=== PATIENT | female | born 1975 | race Caucasian/White ===

== ENCOUNTER 2022-06-03 15:53 | Inpatient (IN) ==
[2022-06-03] MEDS ORDERED: diphenhydrAMINE 50 MG/ML VIAL IV ONE (19:21)
[2022-06-03] MEDS ORDERED: CEFEPIME 1 GM VIAL IV ONE (19:22)
--- NOTE | 2022-06-03 20:04 | Emergency Department Note ---
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 Organism is positive bacilli resembling diphtheroids, isolate is Corynebacterium striatum. Patient also had skin cultures on 05/30/2022 that resulted multi organism, specifically Pseudomonas strep group B and Acinetobacter. Susceptibilities show Pseudomonas and Acinetobacter susceptible to cefepime. The patient was on ciprofloxacin for an extended period of time over April. Her antibiotics were stopped at the end of April, and due to worsening symptoms, she was placed on Keflex on 05/30 and has been on this ever since. Patient notes that her skin lesions have been getting worse with increasing redness, pruritus, and involvement of the affected skin areas. She has notable rash to the bilateral groin and under her pannus. She also has a worsening rash to the right axilla, and along the lower thoracic and lumbar spine bilaterally. Related Data Home Medications Medication Instructions Recorded Confirmed aspirin 81 mg tablet,delayed 81 mg PO QDAY 08/07/19 01/22/22 release (Adult Low Dose Aspirin) duloxetine 20 mg capsule,delayed 20 mg PO BID 08/07/19 01/22/22 release (Cymbalta) fluconazole 100 mg tablet 100 mg PO QWEEK 08/07/19 01/22/22 gabapentin 600 mg tablet 600 mg PO QID 08/07/19 01/22/22 metoprolol PO 08/09/19 01/22/22 acyclovir 800 mg tablet 800 mg PO BID 01/22/22 01/22/22 gentamicin 0.1 % topical cream applic topical QDAY 01/22/22 01/22/22 meloxicam 7.5 mg tablet 7.5 mg PO QDAY 01/22/22 01/22/22 mupirocin calcium 2 % topical cream applic topical PRN 01/22/22 01/22/22 progesterone micronized 200 mg 200 mg PO QPM 01/22/22 01/22/22 capsule Previous Rx's Medication Instructions Recorded albuterol sulfate 90 mcg/actuation 2 puff inhalation .q4-6h PRN 08/07/19 aerosol inhaler (ProAir HFA) cough, shortness of breath, wheezing #8.5 grams benzonatate 100 mg capsule See Rx Instructions PO .q 8 hours 01/22/22 PRN cough #30 caps Allergies Allergy/AdvReac Type Severity Reaction Status Date / Time Warfarin AdvReac Severe vertigo Verified 06/03/22 16:02 Review of Systems ROS ROS Narrative: Narrative: All systems ED: reviewed and negative except as stated. PFSH Narrative Patient History Narrative: Narrative: Medical/Surgical/Family History All Active Problems Bacteremia (Acute) Viral syndrome (Acute) PVCs (premature ventricular contractions) (Acute) History of hysterectomy (Acute) Social History Smoking Status: Never smoker Exam Narrative Narrative: General: AOx3, NAD, nontoxic appearing. Pleasant and conversant. HEENT: PERRL, EOMI, normocephalic. Moist mucous membranes. Normal facies and normal dentition. Chest: Symmetric, no pain to palpation Respiratory: Lungs clear to auscultation bilaterally. No respiratory distress. Unlabored breathing. Heart: Regular rate and rhythm, no murmurs/clicks/rubs. Abdomen: Non-tender, Non distended, normal bowel tones. No organomegaly. Extremities: Warm and well perfused. No edema. DP 2+ bilaterally. No venous stasis. Neuro: No focal deficits. Cranial nerves II-XII grossly normal. Skin: Warm dry, left axilla 10 x 14 cm scaly and erythematous plaque-like rash with clear yellowish drainage. No fluctuance. Right axilla with 5 x 8 cm scaly and erythematous plaque-like rash with clear yellow drainage. Back with a 25 x 22 scaly and erythematous plaque-like rash traversing the midline and wrapping around through the right breast area and across the midline. Psych: Normal mood and affect Heme/Lymph: No abnormal bruising General Limitations: no limitations Course Course Course Narrative: 46-year-old female with history of Darier's disease and positive blood cultures x2 for corynebacterium presents to the ER for evaluation Reevaluation(s) Reevaluation #1: Obtain CBC, chemistry panel, blood cultures Start IV cefepime 1 g to cover Pseudomonas and Acinetobacter 1500 mg IV vancomycin to cover strep/staph and corynebacterium Reevaluation #2: CBC with leukocytosis of 12,500 and no left shift. Chemistry panel is unremarkable with a creatinine of 1.2 Vital Signs Vital signs: Vital Signs Temperature 97.1 F 06/03/22 15:57 Pulse Rate 78 06/03/22 15:57 Respiratory Rate 18 06/03/22 15:57 Blood Pressure 132/65 06/03/22 15:57 Pulse Oximetry (%) 99 06/03/22 15:57 Oxygen Delivery Method Room Air 06/03/22 15:57 Temperature 97.1 F 06/03/22 15:57 Pulse Rate 72 06/03/22 21:47 Respiratory Rate 18 06/03/22 15:57 Blood Pressure 93/75 06/03/22 21:47 Pulse Oximetry (%) 96 06/03/22 21:47 Oxygen Delivery Method Room Air 06/03/22 15:57 MDM MDM Narrative Medical decision making narrative: Darier's disease Corynebacteria bacteremia Patient with multi-organism skin infection and corynebacteria positive blood cultures in the setting of her underlying Darier's disease. She does not meet SIRS criteria; however, the patient will need admission for initiation of IV antibiotics and plan for outpatient treatment. I have reached out to the hospitalist who will be accepting the patient for observation. I attempted to obtain infectious disease consult, but [place]'s ID service is currently not available, and our telehealth infectious disease is also not available. This will have to be deferred until the morning. Lab Data 06/03/22 19:49 Labs: Lab Results 06/03/22 Range/Units 20:55 POC Hct 37.0 (36-48) POC Sodium 141 (133-145) POC Potassium 3.8 (3.3-5.1) POC Chloride 104 (96-108) POC Total CO2 26.0 (22-30) POC BUN 18 (6-20) POC Creatinine 1.2 (0.6-1.2) POC Glucose 78 (70-105) POC WB Ioniz Calcium 1.18 (1.16-1.32) Discharge Plan Patient/Caregiver Discharge Instructions Pt seen by [facility]/PA only: Yes Clinical Impression: Bacteremia Patient Disposition: Xfer As Inpt ([facility]) Follow up with: Aurora Dangelo ARNP [Primary Care Provider] - Prescriptions: No Action meloxicam 7.5 mg tablet 7.5 mg PO QDAY acyclovir 800 mg tablet 800 mg PO BID progesterone micronized 200 mg capsule 200 mg PO QPM gentamicin 0.1 % cream topical QDAY mupirocin calcium 2 % cream topical PRN benzonatate 100 mg capsule See Rx Instructions PO .q 8 hours PRN (Reason: cough) Qty: 30 0RF Rx Instructions: 1-2 PO q 8 hours PRN gabapentin 600 mg tablet 600 mg PO QID duloxetine [Cymbalta] 20 mg capsule,delayed release(DR/EC) 20 mg PO BID aspirin [Adult Low Dose Aspirin] 81 mg tablet,delayed release (DR/EC) 81 mg PO QDAY fluconazole 100 mg tablet 100 mg PO QWEEK albuterol sulfate [ProAir HFA] 90 mcg/actuation HFA aerosol inhaler 2 puff inhalation .q4-6h PRN (Reason: cough, shortness of breath, wheezing) Qty: 8.5 0RF Rx Instructions: administer with spacer metoprolol PO
[2022-06-03] MEDS ORDERED: VANCOMYCIN 1,500 MG in 0.9 % SODIUM CHLORIDE 500 ML IV ONE (20:13)
[2022-06-03 21:01] LABS: POC Calcium, Ionized 1.18 (1.16-1.32); POC Creatinine 1.2 (0.6-1.2); POC Potassium 3.8 (3.3-5.1)
--- NOTE | 2022-06-03 22:02 | Internal Med History&Physical ---
HPI History of Present Illness Patient information: Note initiated : 06/03/22 at 9:54 pm Service Date, if different from initiated Date: [] Patient: Lauren Landin a 46 y/o F admitted on for skin infection sent by Chief Complaint: [] History of present illness: Ms. Landin is a 46 year old F Patient presented from [facility] for bacteremia. Patient has a history of Darier chronic skin condition. She had a flareup since last fall. This is resulted in severe erythematous and tender plaquing most notably bilateral axilla and back and groin and under breasts. She gets serosanguineous drainage from these lesions. Recent culture of these drainage fluid revealed Pseudomonas and Acetobacter. Her blood cultures that were drawn on the revealed Corynebacterium stratum. Patient says she has had fevers chills and headache. Systolic blood pressure in the ED has been 90s to low 100s. Patient is also been on topical steroids at times is with topical antibiotics. She was on ciprofloxacin in April for extended period of time. She has most recently been on Keflex since the . She has not had any significant improvement in her flare thus far. She does follow with dermatology at [facility], nurse practitioner. Review of Systems: Pertinent positives as above. Denies nausea/vomiting/chest or abdominal pain/cough/dyspnea/diarrhea. Remaining 10 point review of system reviewed negative PHYSICAL EXAM: General: Alert, Awake, No acute Distress, obese Eyes/N/T: EOMI, no scleral icterus, PERRL, MMM Head/Neck: neck supple, full ROM, normocephalic atraumatic CV: RRR, No murmurs, normal s1/s2 Pulm: Clear b/l, no wheezing/rhonchi/rales, no respiratory distress Abd: soft, nontender, +BS x4 Ext: no clubbing/cyanosis/edema, nontender Neuro: Alert, no focal deficits, moves all extremities, CN 2-12 grossly intact, sensations intact b/l upper/lower Psychiatric: Skin: Erythematous and tender plaques bilateral axilla and lower back with serosanguineous drainage PFSH PFSH All Active Problems Bacteremia (Acute) Viral syndrome (Acute) PVCs (premature ventricular contractions) (Acute) History of hysterectomy (Acute) Social History (Updated 08/09/19 @ 09:49 by Marley Quesada DO) smoking status: Never smoker MEDS/ALLERGIES Home Medications and Allergies Home Medications Medication Instructions Recorded Confirmed Type albuterol sulfate 90 mcg/actuation 2 puff inhalation .q4-6h PRN 08/07/19 01/22/22 Rx aerosol inhaler (ProAir HFA) cough, shortness of breath, wheezing #8.5 grams aspirin 81 mg tablet,delayed 81 mg PO QDAY 08/07/19 01/22/22 History release (Adult Low Dose Aspirin) duloxetine 20 mg capsule,delayed 20 mg PO BID 08/07/19 01/22/22 History release (Cymbalta) fluconazole 100 mg tablet 100 mg PO QWEEK 08/07/19 01/22/22 History gabapentin 600 mg tablet 600 mg PO QID 08/07/19 01/22/22 History metoprolol PO 08/09/19 01/22/22 History acyclovir 800 mg tablet 800 mg PO BID 01/22/22 01/22/22 History benzonatate 100 mg capsule See Rx Instructions PO .q 8 hours 01/22/22 01/22/22 Rx PRN cough #30 caps gentamicin 0.1 % topical cream applic topical QDAY 01/22/22 01/22/22 History meloxicam 7.5 mg tablet 7.5 mg PO QDAY 01/22/22 01/22/22 History mupirocin calcium 2 % topical cream applic topical PRN 01/22/22 01/22/22 History progesterone micronized 200 mg 200 mg PO QPM 01/22/22 01/22/22 History capsule Allergies Allergy/AdvReac Type Severity Reaction Status Date / Time Warfarin AdvReac Severe vertigo Verified 06/03/22 16:02 EXAM Constitutional Vitals: Temp Pulse Resp BP Pulse Ox O2 Del Method 97.1 F 72 18 93/75 96 Room Air 06/03/22 15:57 06/03/22 21:47 06/03/22 15:57 06/03/22 21:47 06/03/22 21:47 06/03/22 15:57 DATA Data Completed and Pending Labs: Labs from last 24 hours 06/03/22 06/03/22 20:55 19:49 WBC Pending RBC Pending Hgb Pending Hct Pending POC Hct 37.0 MCV Pending MCH Pending MCHC Pending RDW Pending Plt Count Pending MPV Pending Immature Gran % (Auto) Pending Neut % (Auto) Pending Immature Gran # Pending POC Sodium 141 POC Potassium 3.8 POC Chloride 104 POC Total CO2 26.0 POC BUN 18 POC Creatinine 1.2 POC Glucose 78 POC WB Ioniz Calcium 1.18 A/P Narrative A/P Narrative: A: *Bacteremia (Corynebacterium stratum): *Teresa sim chronic skin condition with flare, drainage, Cxs' with Pseumonas/Acinetobacter -Follows with dermatology and is on chronic acyclovir/fluconazole *Obesity: BMI 38 *HTN/HLD: *Anxiety: *Anemia, chronic: *GERD: * P: -Zosyn/Vanco, pending cultures -ID consult -Repeat blood cultures pending -mrsa screen - -cont home BB/SNRI, asa/statin - -Home medication reconciliation -CM for placement needs to -ppx:Lovenox /home PPI Time Spent With Patient Time: Total time spent is greater than 50% in coordination of care (as documented) at patient's floor/unit and/or counseling patient: Initial: Total time with patient: 75 - 90 minutes
[2022-06-04] MEDS ORDERED: VANCOMYCIN PER PHARMACY IV ONE (01:45)
[2022-06-04] MEDS ORDERED: MAGNESIUM SULFATE 2 GM/50 ML BAG IV PRN (01:45)
[2022-06-04] MEDS ORDERED: SENNOSIDES 1 TABLET PO PRN (01:45)
[2022-06-04] MEDS ORDERED: POLYETHYLENE GLYCOL 3350 17 GM PACKET PO PRN (01:45)
[2022-06-04] MEDS ORDERED: POTASSIUM CHLORIDE 40 MEQ in DEXTROSE 5% IN WATER 500 ML IV PRN (01:45)
[2022-06-04] MEDS ORDERED: ONDANSETRON 4 MG/2 ML VIAL IV PRN (01:45)
[2022-06-04] MEDS ORDERED: POTASSIUM CHLORIDE 20 MEQ TABLET PO PRN ×2 (01:45)
[2022-06-04] MEDS ORDERED: IPRATROPIUM/ALBUTEROL 3 ML AMPUL.NEB NEB PRN (01:45)
[2022-06-04] MEDS: 0.9 % SODIUM CHLORIDE 1,000 ML IV SCH ×4 (02:31→17:59)
[2022-06-04] MEDS: PIPERACILLIN SODIUM/TAZOBACTAM 3.375 GM in DEXTROSE 5% IN WATER 50 ML IV SCH ×4 (02:32→17:50)
[2022-06-04 03:20] LABS: Basophils # (Auto) 0.12 K/mcL (0.00-0.30); Eosinophils # (Auto) 1.08 K/mcL (0.00-0.70); Eosinophils % (Auto) 8.6 % (0.0-7.0); Hematocrit 39.7 % (34.1-44.9); Hemoglobin 12.3 g/dL (11.2-15.7); Lymphocytes # (Auto) 3.22 K/mcL (1.50-4.80); Lymphocytes % (Auto) 25.7 % (15.5-49.0); Mean Cell Volume 88.6 fL (80.0-100.0); Mean Platelet Volume 9.4 fL (8.8-12.5); Monocytes # (Auto) 0.81 K/mcL (0.10-0.90); Monocytes % (Auto) 6.5 % (1.0-12.0); Platelet Count 414 K/mcL (140-440); RBC 4.48 M/mcL (3.59-5.38); Red Cell Distribution Width 14.5 % (11.5-14.5); WBC 12.6 K/mcL (4.5-11.0)
[2022-06-04] MEDS: HYDROcodone/APAP 5/325MG TABLET PO ONE ×2 (03:52→04:18)
[2022-06-04] MEDS: HYDROcodone/APAP 5/325MG TABLET PO PRN ×2 (03:53→09:28)
[2022-06-04] MEDS ORDERED: diphenhydrAMINE 25 MG CAPSULE ONE (04:08)
[2022-06-04] MEDS: diphenhydrAMINE 25 MG CAPSULE PO PRN ×2 (04:09→09:28)
[2022-06-04] MEDS: 0.9 % SODIUM CHLORIDE 10 ML SYRINGE IV SCH ×3 (05:49→21:03)
[2022-06-04] MEDS ORDERED: VANCOMYCIN PER PHARMACY IV SCH (06:45)
[2022-06-04 07:19] LABS: Basophils # (Auto) 0.09 K/mcL (0.00-0.30); Basophils % (Auto) 0.8 % (0.0-2.0); Eosinophils # (Auto) 1.04 K/mcL (0.00-0.70); Eosinophils % (Auto) 9.1 % (0.0-7.0); Hematocrit 36.8 % (34.1-44.9); Hemoglobin 11.2 g/dL (11.2-15.7); Lymphocytes # (Auto) 2.94 K/mcL (1.50-4.80); Lymphocytes % (Auto) 25.9 % (15.5-49.0); Mean Cell Volume 88.2 fL (80.0-100.0); Mean Corpuscular HGB Conc 30.4 g/dL (31.0-36.0); Mean Platelet Volume 9.3 fL (8.8-12.5); Monocytes # (Auto) 0.76 K/mcL (0.10-0.90); Monocytes % (Auto) 6.7 % (1.0-12.0); Neutrophils % (Auto) 57.2 % (38.0-78.0); Platelet Count 345 K/mcL (140-440); RBC 4.17 M/mcL (3.59-5.38); Red Cell Distribution Width 14.4 % (11.5-14.5); WBC 11.4 K/mcL (4.5-11.0)
[2022-06-04] MEDS ORDERED: MELOXICAM 7.5 MG TABLET PO PRN (07:33)
[2022-06-04] MEDS ORDERED: BENZONATATE 100 MG CAPSULE PO PRN (07:33)
--- NOTE | 2022-06-04 07:35 | Internal Med Progress Note ---
SUBJECTIVE Subjective Patient information: Note initiated : 06/04/22 at 7:31 am Service Date, if different from initiated Date: [] Patient: Lauren Landin a 46 y/o F admitted on 06/03/22 for skin infection sent by Chief Complaint: [] Interval history: History of present illness: Ms. Landin is a 46 year old F Patient presented from [facility] for bacteremia. Patient has a history of Darier chronic skin condition. She had a flareup since last fall. This is resulted in severe erythematous and tender plaquing most notably bilateral axilla and back and groin and under breasts. She gets serosanguineous drainage from these lesions. Recent culture of these drainage fluid revealed Pseudomonas and Acetobacter. Her blood cultures that were drawn on the revealed Corynebacterium stratum. Patient says she has had fevers chills and headache. Systolic blood pressure in the ED has been 90s to low 100s. Patient is also been on topical steroids at times is with topical antibiotics. She was on ciprofloxacin in April for extended period of time. She has most recently been on Keflex since the . She has not had any significant improvement in her flare thus far. She does follow with dermatology at [facility], nurse practitioner. 06/04 Patient slept all right. Awaiting culture report and ID consult recommen dations. Continue broad-spectrum IV antibiotics until seen by infectious disease specialist. Monitor CBC and chemistry panel. Leukocytosis mildly improved faxed report of sensitivities to Pseudomonas revealed resistance to ciprofloxacin and gentamicin, sensitive to aztreonam cefepime and Zosyn. Fax report of sensitivities to Acinetobacter show sensitivity to all antibiotics tested. report from 05/31/2022 reveals Corynebacterium striatum group in both bottles of one set, blood cultures. Looks like other set negative. Review of Systems: Positive for headache. Denies fever/chills/nausea/vomiting/chest or abdominal pain/cough/dyspnea/diarrhea. Otherwise see above. PHYSICAL EXAM: General: Alert, Awake, No acute Distress, obese Eyes/N/T: EOMI, no scleral icterus, Head/Neck: neck supple, full ROM, CV: RRR, No murmurs, Pulm: Clear b/l, no wheezing/rhonchi/rales, no respiratory distress Abd: soft, nontender, +BS x4 Ext: no clubbing/cyanosis/edema, nontender Neuro: Alert, no focal deficits, moves all extremities, sensations intact b/l upper/lower Psychiatric: Skin: Erythematous and tender plaques bilateral axilla and lower back with serosanguineous drainage Constitutional Vitals: Vital Signs Temp Pulse Resp BP Pulse Ox O2 Del Method 97.8 F 55 L 16 121/69 97 Room Air 06/04/22 04:00 06/04/22 04:00 06/04/22 04:00 06/04/22 04:00 06/04/22 04:00 06/04/22 04:00 Period Temp Pulse Resp BP Sys/Parker Pulse Ox O2 Del Method O2 Flow Rate Last 24 Hr 97.1 F-98.9 F 55-78 12-18 73-132/46-75 95-99 Room Air-Room Air Intake and Output 06/03/22 06/04/22 06/04/22 19:59 03:59 11:59 Intake Total 550 360 Balance 550 360 Weight 95.254 kg 94.829 kg Intake & Output: Intake & Output 06/03/22 06/04/22 06/04/22 19:59 03:59 11:59 Intake Total 550 360 Balance 550 360 Weight 95.254 kg 94.829 kg Intake: IV 550 Zosyn 3.375 gm In Dextrose 5% 50 in Water 50 ml @ 100 mls/hr IV Q6H [facility] Rx#:[id number] Vancomycin 1,500 mg In Sodium 500 Chloride 0.9% 500 ml @ 333.3 mls/hr IV ONCE ONE Rx#: [id number] Oral 360 Other: # Voids 1 OBJ DATA Labs 06/04/22 05:04 06/04/22 05:04 Labs: Abnormal Lab Results 06/04/22 06/03/22 05:04 19:49 WBC 11.4 H 12.6 H MCHC 30.4 L Eos % (Auto) 9.1 H 8.6 H Eos # (Auto) 1.04 H 1.08 H Meds: Medications Hydrocodone Bitart/Acetaminophen (Hydrocodone/Apap 5/325mg Tablet) 1 tab PO Q4HP PRN PRN Reason: PAIN LEVEL 3-6 Last Admin: 06/04/22 03:53 Dose: 1 tab Albuterol/Ipratropium (Ipratropium/Albuterol 3 Ml Ampul.Neb) 3 ml NEB Q4HP PRN PRN Reason: Shortness Of Breath Diphenhydramine HCl (Diphenhydramine 25 Mg Capsule) 25 mg PO Q4HP PRN PRN Reason: Allergic Symptoms Last Admin: 06/04/22 04:09 Dose: 25 mg Docusate Sodium (Docusate Sodium 100 Mg Capsule) 100 mg PO BID [facility] Enoxaparin Sodium (Enoxaparin 40 Mg/0.4 Ml Syringe) 40 mg SQ DAILY [facility] Potassium Chloride 40 meq/ (Dextrose) 520 mls @ 130 mls/hr IV UD PRN PRN Reason: Potassium < 3 Magnesium Sulfate (Magnesium Sulfate) 2 gm in 50 mls @ 50 mls/hr IV UD PRN PRN Reason: Magnesium </= 1.6 Sodium Chloride (Sodium Chloride 0.9%) 1,000 mls @ 125 mls/hr IV .Q8H [facility] Last Admin: 06/04/22 02:31 Dose: 125 mls/hr Piperacillin Sod/Tazobactam (Sod 3.375 gm/ Dextrose) 50 mls @ 100 mls/hr IV Q6H [facility]; Protocol Last Admin: 06/04/22 06:58 Dose: 100 mls/hr Ondansetron HCl (Ondansetron 4 Mg/2 Ml Vial) 4 mg IV Q4HP PRN PRN Reason: Nausea And Vomiting Polyethylene Glycol (Polyethylene Glycol 3350 17 Gm Packet) 17 gm PO DAILYP PRN PRN Reason: Constipation Potassium Chloride (Potassium Chloride 20 Meq Tablet) 40 meq PO UD PRN PRN Reason: Potssium is 3-3.5 Potassium Chloride (Potassium Chloride 20 Meq Tablet) 40 meq PO UD PRN PRN Reason: Potassium < 3 Senna (Sennosides 1 Tablet) 2 tab PO DAILYP PRN PRN Reason: Constipation Sodium Chloride (0.9 % Sodium Chloride 10 Ml Syringe) 10 ml IV Q8 [facility] Last Admin: 06/04/22 05:49 Dose: Not Given Vancomycin HCl (Vancomycin Per Pharmacy) 1 order IV UD [facility]; Protocol A/P Narrative A/P Narrative: A: *Bacteremia (Corynebacterium stratum): *Leukocytosis: 2/2 above, improving *Teresa sim chronic skin condition with flare, drainage, Cxs' with Pseudomonas/Acinetobacter -Follows with dermatology and is on chronic acyclovir/fluconazole, was on topical gentamicin at one point *Obesity: BMI 38 *HTN/HLD: *Anxiety: *Anemia, chronic: *GERD: P: -Zosyn/Vanco, pending cultures -ID consult -Repeat blood cultures pending -mrsa screen -cont home BB/SNRI, asa/statin - -CM for any placement needs -ppx:Lovenox / home PPI Time Spent With Patient Time: Total time spent is greater than 50% in coordination of care (as documented) at patient's floor/unit and/or counseling patient: Subsequent: Total time with patient: 50 - 65 Minutes QUALITY VTE Deep Vein Thrombosis/Pulmonary Embolism Present on Admission: No
[2022-06-04 08:03] LABS: ALT/SGPT 8 U/L (<40); AST/SGOT 14 U/L (<32); Albumin 3.6 gm/dL (3.2-5.2); Albumin/Globulin Ratio 1.7 (1.0-2.3); Alkaline Phosphatase 60 U/L (39-117); Bilirubin,Direct < 0.2 mg/dL (0-0.3); Bilirubin,Total 0.4 mg/dL (0.1-1.0); Blood Urea Nitrogen 15 mg/dL (6-20); Calcium 8.6 mg/dL (8.6-10.4); Carbon Dioxide 23 mmol/L (22-30); Chloride 103 mmol/L (96-108); Globulin 2.1 gm/dL (2.2-3.7); Glomerular Filtration Rate 76; Glucose 84 mg/dL (70-105); Lactate Dehydrogenase 220 U/L (135-225); Triglycerides 85 mg/dL (<150); Uric Acid 5.1 mg/dL (2.5-8.0)
[2022-06-04] MEDS ORDERED: FLUCONAZOLE 100 MG TABLET PO SCH (09:00)
[2022-06-04] MEDS: GABAPENTIN 300 MG CAPSULE PO SCH ×4 (09:15→20:49)
[2022-06-04] MEDS: ENOXAPARIN 40 MG/0.4 ML SYRINGE SQ SCH (09:15)
[2022-06-04] MEDS: VANCOMYCIN 1,500 MG in 0.9 % SODIUM CHLORIDE 500 ML IV SCH ×2 (09:16→21:03)
[2022-06-04] MEDS: ACYCLOVIR 400 MG TABLET PO SCH ×2 (09:16→20:49)
[2022-06-04] MEDS: DOCUSATE SODIUM 100 MG CAPSULE PO SCH ×2 (09:16→20:48)
[2022-06-04] MEDS: ASPIRIN 81 MG TAB.CHEW PO SCH (09:16)
[2022-06-04] MEDS: DULoxetine 20 MG CAPSULE PO SCH ×2 (09:16→20:49)
--- NOTE | 2022-06-04 15:17 | Discharge Summary ---
Discharge Provider Provider IMPORTANT FOLLOW-UP INFORMATION FOR PCP: Patient information: Note initiated : 06/04/22 at 3:15 pm Service Date, if different from initiated Date: [] Patient: Lauren Landin a 46 y/o F admitted on 06/03/22 for skin infection sent by Chief Complaint: [] Date of admission: 06/03/22 23:16 Discharge date: 06/07/22 Primary care physician: Aurora Dangelo Consults: 06/03/22 Consult to Physician [CONS] Stat Comment: bacteremia Consulting Provider: Dylan Casanova Reason For Exam: Physician to Consult 06/04/22 01:45 Consult to Physician [CONS] Routine Comment: Corynebacterium Bacteremia, pseudomonas/acinetobac Consulting Provider: Leticia Villasenor Reason For Exam: Physician to Consult COURSE Hospital Course Hospital course: istory of present illness: Ms. Landin is a 46 year old F Patient presented from [facility] for bacteremia. Patient has a history of Darier chronic skin condition. She had a flareup since last fall. This is resulted in severe erythematous and tender plaquing most notably bilateral axilla and back and groin and under breasts. She gets serosanguineous drainage from these lesions. Recent culture of these drainage fluid revealed Pseudomonas and Acetobacter. Her blood cultures that were drawn on the revealed Corynebacterium stratum. Patient says she has had fevers chills and headache. Systolic blood pressure in the ED has been 90s to low 100s. Patient is also been on topical steroids at times is with topical antibiotics. She was on ciprofloxacin in April for extended period of time. She has most recently been on Keflex since the . She has not had any significant improvement in her flare thus far. She does follow with dermatology at [facility], nurse practitioner. 06/04 Patient slept all right. Awaiting culture report and ID consult recommendations. Continue broad-spectrum IV antibiotics until seen by infectious disease specialist. Monitor CBC and chemistry panel. Leukocytosis mildly improved faxed report of sensitivities to Pseudomonas revealed resistance to ciprofloxacin and gentamicin, sensitive to aztreonam cefepime and Zosyn. Fax report of sensitivities to Acinetobacter show sensitivity to all antibiotics tested. report from 05/31/2022 reveals Corynebacterium striatum group in both bottles of one set, blood cultures. Looks like other set negative. 06/05 Patient tired today. Developed diarrhea yesterday. Will DC stool softeners. Check fecal WBCs. Awaiting ID consult. Leukocytosis resolved. 06/06 Diarrhea seems to resolved. started augemtin and aztreonam per ID. awaiting midline placement and output infusion coordination. 06/07 No overnight event or new complaints. Have been coordinating outpatient infusions and midline placement. A: *Wound infections: 2/2 below -Cxs' withPseudomonas/Acinetobacter *Corynebacterium stratum in blood - suspected contaminant): -repeat BC neg *Teresa sim chronic skin condition with flare, drainage from multiple areas, -Follows with dermatology and is on chronic acyclovir/fluconazole, was on topical gentamicin at one point *Leukocytosis: 2/2 above, improving *Obesity: BMI 38 *HTN/HLD: *Anxiety: *Anemia, chronic: *GERD: P: -cont aztreonam 2gm tid and augmentin bid for 1 week Discharge diagnosis: Skin infection ?Bacteremia versus contaminant Secondary discharge diagnosis: Teresa roney, obesity hypertension anxiety chronic anemia GERD Time Spent with Patient Time attestation: Total time spent providing and/or coordinating discharge services: Time spent: Greater than 30 minutes EXAM Constitutional Vitals: Temp Pulse Resp BP Pulse Ox O2 Del Method 98.4 F 66 16 118/71 97 Room Air 06/04/22 11:32 06/04/22 11:32 06/04/22 11:32 06/04/22 11:32 06/04/22 11:32 06/04/22 11:32 Discharge Data Data Completed and Pending Labs on day of discharge: Labs from last 24 hours 06/04/22 06/04/22 06/03/22 05:04 05:04 20:55 WBC 11.4 H RBC 4.17 Hgb 11.2 Hct 36.8 POC Hct 37.0 MCV 88.2 MCH 26.9 MCHC 30.4 L RDW 14.4 Plt Count 345 MPV 9.3 Immature Gran % (Auto) 0.3 Neut % (Auto) 57.2 Lymph % (Auto) 25.9 [place] % (Auto) 6.7 Eos % (Auto) 9.1 H Baso % (Auto) 0.8 Lymph # (Auto) 2.94 [place] # (Auto) 0.76 Eos # (Auto) 1.04 H Baso # (Auto) 0.09 Immature Gran # 0.03 Absolute Neutrophils 6.51 POC Sodium 141 Sodium 137 POC Potassium 3.8 Potassium 3.8 POC Chloride 104 Chloride 103 Carbon Dioxide 23 POC Total CO2 26.0 Anion Gap 11.0 POC BUN 18 BUN 15 Creatinine 0.9 POC Creatinine 1.2 GFR Calculation 76 Glucose 84 POC Glucose 78 Uric Acid 5.1 Calcium 8.6 POC WB Ioniz Calcium 1.18 Phosphorus 4.0 Magnesium 2.0 Total Bilirubin 0.4 Direct Bilirubin < 0.2 GGT 16 AST 14 ALT 8 Alkaline Phosphatase 60 Lactate Dehydrogenase 220 Total Protein 5.7 L Albumin 3.6 Globulin 2.1 L Albumin/Globulin Ratio 1.7 Triglycerides 85 06/03/22 19:49 WBC 12.6 H RBC 4.48 Hgb 12.3 Hct 39.7 POC Hct MCV 88.6 MCH 27.5 MCHC 31.0 RDW 14.5 Plt Count 414 MPV 9.4 Immature Gran % (Auto) 0.2 Neut % (Auto) 58.0 Lymph % (Auto) 25.7 [place] % (Auto) 6.5 Eos % (Auto) 8.6 H Baso % (Auto) 1.0 Lymph # (Auto) 3.22 [place] # (Auto) 0.81 Eos # (Auto) 1.08 H Baso # (Auto) 0.12 Immature Gran # 0.03 Absolute Neutrophils 7.29 POC Sodium Sodium POC Potassium Potassium POC Chloride Chloride Carbon Dioxide POC Total CO2 Anion Gap POC BUN BUN Creatinine POC Creatinine GFR Calculation Glucose POC Glucose Uric Acid Calcium POC WB Ioniz Calcium Phosphorus Magnesium Total Bilirubin Direct Bilirubin GGT AST ALT Alkaline Phosphatase Lactate Dehydrogenase Total Protein Albumin Globulin Albumin/Globulin Ratio Triglycerides Discharge Plan Patient/Caregiver Discharge Instructions Activity: increase activity as tolerated Diet: Regular Diet Prescriptions: New aztreonam 1 gram Recon Soln 2 g IV Q8 Qty: 18 0RF amoxicillin-pot clavulanate 875-125 mg Tablet 875 mg PO BIDCC Qty: 12 0RF Continued meloxicam 7.5 mg tablet 7.5 mg PO QDAY acyclovir 800 mg tablet 800 mg PO BID progesterone micronized 200 mg capsule 200 mg PO QPM benzonatate 100 mg capsule See Rx Instructions PO .q 8 hours PRN (Reason: cough) Qty: 30 0RF Rx Instructions: 1-2 PO q 8 hours PRN gabapentin 600 mg tablet 600 mg PO QID duloxetine [Cymbalta] 20 mg capsule,delayed release(DR/EC) 20 mg PO BID aspirin [Adult Low Dose Aspirin] 81 mg tablet,delayed release (DR/EC) 81 mg PO QDAY fluconazole 100 mg tablet 100 mg PO QWEEK albuterol sulfate [ProAir HFA] 90 mcg/actuation HFA aerosol inhaler 2 puff inhalation .q4-6h PRN (Reason: cough, shortness of breath, wheezing) Qty: 8.5 0RF Rx Instructions: administer with spacer Follow Up Plan Follow up with: Aurora Dangelo ARNP [Primary Care Provider] - Patient Disposition: Home, Self-Care Prognosis: Fair Overall status at discharge: patient is progressing back to baseline Discharge Orders: Discharge Order (Routine); Ordered 06/07/22 Ordered By: Dylan Casanova [facility] Deep Vein Thrombosis/Pulmonary Embolism Present on Admission: No
[2022-06-05] MEDS: 0.9 % SODIUM CHLORIDE 1,000 ML IV SCH ×3 (05:34→20:48)
[2022-06-05] MEDS: 0.9 % SODIUM CHLORIDE 10 ML SYRINGE IV SCH ×3 (05:35→22:24)
[2022-06-05] MEDS: PIPERACILLIN SODIUM/TAZOBACTAM 3.375 GM in DEXTROSE 5% IN WATER 50 ML IV SCH ×3 (05:35→12:08)
--- NOTE | 2022-06-05 07:45 | Internal Med Progress Note ---
SUBJECTIVE Subjective Patient information: Note initiated : 06/05/22 at 7:41 am Service Date, if different from initiated Date: [] Patient: Lauren Landin a 46 y/o F admitted on 06/03/22 for skin infection sent by Chief Complaint: [] Interval history: History of present illness: Ms. Landin is a 46 year old F Patient presented from [facility] for bacteremia. Patient has a history of Darier chronic skin condition. She had a flareup since last fall. This is resulted in severe erythematous and tender plaquing most notably bilateral axilla and back and groin and under breasts. She gets serosanguineous drainage from these lesions. Recent culture of these drainage fluid revealed Pseudomonas and Acetobacter. Her blood cultures that were drawn on the revealed Corynebacterium stratum. Patient says she has had fevers chills and headache. Systolic blood pressure in the ED has been 90s to low 100s. Patient is also been on topical steroids at times is with topical antibiotics. She was on ciprofloxacin in April for extended period of time. She has most recently been on Keflex since the . She has not had any significant improvement in her flare thus far. She does follow with dermatology at [facility], nurse practitioner. 06/04 Patient slept all right. Awaiting culture report and ID consult recommen dations. Continue broad-spectrum IV antibiotics until seen by infectious disease specialist. Monitor CBC and chemistry panel. Leukocytosis mildly improved faxed report of sensitivities to Pseudomonas revealed resistance to ciprofloxacin and gentamicin, sensitive to aztreonam cefepime and Zosyn. Fax report of sensitivities to Acinetobacter show sensitivity to all antibiotics tested. report from 05/31/2022 reveals Corynebacterium striatum group in both bottles of one set, blood cultures. Looks like other set negative. 06/05 Patient tired today. Developed diarrhea yesterday. Will DC stool softeners. Check fecal WBCs. Awaiting ID consult. Leukocytosis resolved. Review of Systems: Positive for headache. Denies fever/chills/nausea/vomiting/chest or abdominal pain/cough/dyspnea. Otherwise see above. PHYSICAL EXAM: General: Alert, Awake, No acute Distress, obese Eyes/N/T: EOMI, no scleral icterus, Head/Neck: neck supple, full ROM, CV: RRR, No murmurs, Pulm: Clear b/l, no wheezing/rhonchi/rales, no respiratory distress Abd: soft, nontender, +BS x4 Ext: no clubbing/cyanosis/edema, nontender Neuro: Alert, no focal deficits, moves all extremities, sensations intact b/l upper/lower Psychiatric: Skin: Erythematous and tender plaques bilateral axilla and lower back with serosanguineous drainage Constitutional Vitals: Vital Signs Temp Pulse Resp BP Pulse Ox O2 Del Method 97.7 F 57 L 16 136/95 96 Room Air 06/05/22 04:00 06/05/22 04:00 06/05/22 04:00 06/05/22 04:00 06/05/22 04:00 06/05/22 04:00 Period Temp Pulse Resp BP Sys/Parker Pulse Ox O2 Del Method O2 Flow Rate Last 24 Hr 97.7 F-98.4 F 57-80 16-18 118-138/71-95 96-99 Room Air-Room Air Intake and Output 06/04/22 06/05/22 06/05/22 19:59 03:59 11:59 Intake Total 1150 1550 530 Balance 1150 1550 530 Weight 96.332 kg Intake & Output: Intake & Output 06/04/22 06/05/22 06/05/22 19:59 03:59 11:59 Intake Total 1150 1550 530 Balance 1150 1550 530 Weight 96.332 kg Intake: IV 100 1550 50 Sodium Chloride 0.9% 1,000 ml @ 1000 125 mls/hr IV .Q8H JEFF Rx#: [id number] Zosyn 3.375 gm In Dextrose 5% 100 50 50 in Water 50 ml @ 100 mls/hr IV Q6H JEFF Rx#:[id number] Vancomycin 1,500 mg In Sodium 500 Chloride 0.9% 500 ml @ 333.3 mls/hr IV Q12H JEFF Rx#: [id number] Oral 1050 480 Other: Urine Appearance Clear Urine Color Yellow Pale # Voids 1 1 1 # Bowel Movements 0 OBJ DATA Labs 06/05/22 04:55 06/04/22 05:04 Labs: Abnormal Lab Results 06/04/22 06/04/22 06/03/22 05:04 05:04 19:49 WBC 11.4 H 12.6 H MCHC 30.4 L Eos % (Auto) 9.1 H 8.6 H Eos # (Auto) 1.04 H 1.08 H Total Protein 5.7 L Globulin 2.1 L Meds: Medications Hydrocodone Bitart/Acetaminophen (Hydrocodone/Apap 5/325mg Tablet) 1 tab PO Q4HP PRN PRN Reason: PAIN LEVEL 3-6 Last Admin: 06/04/22 09:28 Dose: 1 tab Acyclovir (Acyclovir 400 Mg Tablet) 800 mg PO BID [facility] Last Admin: 06/04/22 20:49 Dose: 800 mg Albuterol/Ipratropium (Ipratropium/Albuterol 3 Ml Ampul.Neb) 3 ml NEB Q4HP PRN PRN Reason: Shortness Of Breath Aspirin (Aspirin 81 Mg Tab.Chew) 81 mg PO DAILY [facility] Last Admin: 06/04/22 09:16 Dose: 81 mg Benzonatate (Benzonatate 100 Mg Capsule) 100 - 200 mg PO Q8HP PRN PRN Reason: cough Diphenhydramine HCl (Diphenhydramine 25 Mg Capsule) 25 mg PO Q4HP PRN PRN Reason: Allergic Symptoms Last Admin: 06/04/22 09:28 Dose: 25 mg Docusate Sodium (Docusate Sodium 100 Mg Capsule) 100 mg PO BID [facility] Last Admin: 06/04/22 20:48 Dose: 100 mg Duloxetine HCl (Duloxetine 20 Mg Capsule) 20 mg PO BID [facility] Last Admin: 06/04/22 20:49 Dose: 20 mg Enoxaparin Sodium (Enoxaparin 40 Mg/0.4 Ml Syringe) 40 mg SQ DAILY [facility] Last Admin: 06/04/22 09:15 Dose: 40 mg Fluconazole (Fluconazole 100 Mg Tablet) 100 mg PO QWEEK [facility]; Protocol Last Admin: 06/04/22 09:16 Dose: 100 mg Gabapentin (Gabapentin 300 Mg Capsule) 600 mg PO QID [facility] Last Admin: 06/04/22 20:49 Dose: 600 mg Potassium Chloride 40 meq/ (Dextrose) 520 mls @ 130 mls/hr IV UD PRN PRN Reason: Potassium < 3 Magnesium Sulfate (Magnesium Sulfate) 2 gm in 50 mls @ 50 mls/hr IV UD PRN PRN Reason: Magnesium </= 1.6 Sodium Chloride (Sodium Chloride 0.9%) 1,000 mls @ 125 mls/hr IV .Q8H [facility] Last Admin: 06/05/22 05:34 Dose: 125 mls/hr Piperacillin Sod/Tazobactam (Sod 3.375 gm/ Dextrose) 50 mls @ 100 mls/hr IV Q6H [facility]; Protocol Last Infusion: 06/05/22 06:35 Dose: Infused Vancomycin HCl 1,500 mg/ (Sodium Chloride) 500 mls @ 333.3 mls/hr IV Q12H [facility] Last Infusion: 06/04/22 22:34 Dose: Infused Meloxicam (Meloxicam 7.5 Mg Tablet) 7.5 mg PO QDAY PRN; Protocol PRN Reason: pain Ondansetron HCl (Ondansetron 4 Mg/2 Ml Vial) 4 mg IV Q4HP PRN PRN Reason: Nausea And Vomiting Polyethylene Glycol (Polyethylene Glycol 3350 17 Gm Packet) 17 gm PO DAILYP PRN PRN Reason: Constipation Potassium Chloride (Potassium Chloride 20 Meq Tablet) 40 meq PO UD PRN PRN Reason: Potssium is 3-3.5 Potassium Chloride (Potassium Chloride 20 Meq Tablet) 40 meq PO UD PRN PRN Reason: Potassium < 3 Senna (Sennosides 1 Tablet) 2 tab PO DAILYP PRN PRN Reason: Constipation Sodium Chloride (0.9 % Sodium Chloride 10 Ml Syringe) 10 ml IV Q8 [facility] Last Admin: 06/05/22 05:35 Dose: Not Given Vancomycin HCl (Vancomycin Per Pharmacy) 1 order IV UD [facility]; Protocol A/P Narrative A/P Narrative: A: *?Bacteremia (Corynebacterium stratum - ?contaminant): -repeat BC neg thus far *Wound infections: 2/2 below -Cxs' with Pseudomonas/Acinetobacter *Teresa sim chronic skin condition with flare, drainage from multiple areas, -Follows with dermatology and is on chronic acyclovir/fluconazole, was on topical gentamicin at one point *Leukocytosis: 2/2 above, improving *Obesity: BMI 38 *HTN/HLD: *Anxiety: *Anemia, chronic: *GERD: P: -Zosyn, pending cultures -ID consult -Repeat blood cultures pending -mrsa screen neg -cont home BB/SNRI, asa/statin -CM for any placement needs -ppx:Lovenox / home PPI Time Spent With Patient Time: Total time spent is greater than 50% in coordination of care (as documented) at patient's floor/unit and/or counseling patient: Subsequent: Total time with patient: 35 - 49 minutes [facility]TE Deep Vein Thrombosis/Pulmonary Embolism Present on Admission: No
[2022-06-05 08:52] LABS: Basophils # (Auto) 0.09 K/mcL (0.00-0.30); Eosinophils # (Auto) 0.88 K/mcL (0.00-0.70); Eosinophils % (Auto) 9.8 % (0.0-7.0); Hemoglobin 11.6 g/dL (11.2-15.7); Lymphocytes # (Auto) 2.54 K/mcL (1.50-4.80); Lymphocytes % (Auto) 28.4 % (15.5-49.0); Mean Cell Volume 88.4 fL (80.0-100.0); Mean Corpuscular HGB Conc 30.5 g/dL (31.0-36.0); Mean Platelet Volume 9.7 fL (8.8-12.5); Monocytes # (Auto) 0.74 K/mcL (0.10-0.90); Monocytes % (Auto) 8.3 % (1.0-12.0); Neutrophils % (Auto) 52.3 % (38.0-78.0); Platelet Count 360 K/mcL (140-440); Red Cell Distribution Width 14.5 % (11.5-14.5)
[2022-06-05] MEDS: DULoxetine 20 MG CAPSULE PO SCH ×2 (09:05→20:35)
[2022-06-05] MEDS: ACYCLOVIR 400 MG TABLET PO SCH ×2 (09:05→20:35)
[2022-06-05] MEDS: ASPIRIN 81 MG TAB.CHEW PO SCH (09:05)
[2022-06-05] MEDS: DOCUSATE SODIUM 100 MG CAPSULE PO SCH (09:05)
[2022-06-05] MEDS: GABAPENTIN 300 MG CAPSULE PO SCH ×4 (09:05→20:35)
[2022-06-05] MEDS: ENOXAPARIN 40 MG/0.4 ML SYRINGE SQ SCH (09:05)
--- NOTE | 2022-06-05 14:07 | Infectious Disease Consult ---
Telemedicine Intake Consent for assessment and treatment to occur via virtual technology obtained from: Patient Location of Provider: Home Patient location: Med/Surg Unit HPI Date of Consult Consult Date: 06/05/22 Primary Care Provider: Aurora Dangelo Consult Narrative History of present illness: 46 yo with history of Darier chronic skin condition and had a flare up since last fall. She had a back binder and that created a breakdown in the lumbar area. She has purulent drainage from the wounds and culture is positive for multiple pathogens. Patient also had a positive blood cultures for Corynebacterium and was admitted for this reason. She has been on multiple courses of abx including cipro and cephalexine. ID is consulted for antibiotics management cc:: CC: Dylan Casanova PFSH PFSH All Active Problems Bacteremia (Acute) Viral syndrome (Acute) PVCs (premature ventricular contractions) (Acute) History of hysterectomy (Acute) Social History (Updated 08/09/19 @ 09:49 by Marley Quesada DO) smoking status: Never smoker MEDS/ALLERGIES Home Medications and Allergies Home Medications Medication Instructions Recorded Confirmed Type albuterol sulfate 90 mcg/actuation 2 puff inhalation .q4-6h PRN 08/07/19 06/04/22 Rx aerosol inhaler (ProAir HFA) cough, shortness of breath, wheezing #8.5 grams aspirin 81 mg tablet,delayed 81 mg PO QDAY 08/07/19 06/04/22 History release (Adult Low Dose Aspirin) duloxetine 20 mg capsule,delayed 20 mg PO BID 08/07/19 06/04/22 History release (Cymbalta) fluconazole 100 mg tablet 100 mg PO QWEEK 08/07/19 06/04/22 History gabapentin 600 mg tablet 600 mg PO QID 08/07/19 06/04/22 History acyclovir 800 mg tablet 800 mg PO BID 01/22/22 06/04/22 History benzonatate 100 mg capsule See Rx Instructions PO .q 8 hours 01/22/22 06/04/22 Rx PRN cough #30 caps meloxicam 7.5 mg tablet 7.5 mg PO QDAY 01/22/22 06/04/22 History progesterone micronized 200 mg 200 mg PO QPM 01/22/22 06/04/22 History capsule Allergies Allergy/AdvReac Type Severity Reaction Status Date / Time Warfarin AdvReac Mild vertigo Verified 06/04/22 06:31 Physical Examination Vital Signs Vital signs: Temp Pulse Resp BP Pulse Ox O2 Del Method 98.2 F 55 L 16 128/91 97 Room Air 06/05/22 11:40 06/05/22 11:40 06/05/22 11:40 06/05/22 11:40 06/05/22 11:40 06/05/22 11:40 Constitutional General appearance: no acute distress Integumentary Integumentary: other (Erythematous patches on axilla, breast, inguinal and lower back) Results Laboratory Findings 06/05/22 07:24 06/04/22 05:04 Abnormal lab findings: Abnormal Labs 06/03/22 06/04/22 06/04/22 19:49 05:04 05:04 WBC 12.6 H 11.4 H MCHC 30.4 L Eos % (Auto) 8.6 H 9.1 H Eos # (Auto) 1.08 H 1.04 H Total Protein 5.7 L Globulin 2.1 L Vancomycin Trough 06/05/22 06/05/22 07:24 07:24 WBC MCHC 30.5 L Eos % (Auto) 9.8 H Eos # (Auto) 0.88 H Total Protein Globulin Vancomycin Trough 24.2 H* Microbiology: Microbiology 06/03/22 19:57 Blood Blood Culture - Preliminary 06/03/22 19:49 Blood Blood Culture - Preliminary 06/04/22 02:51 Nose MRSA (PCR) - Final A/P Narrative A/P Narrative: Patient with Darier chronic skin condition and with recent flare up now with wo und infection. Can place midline and send patient home with IV aztreonam 2gm every 8 hours and augmentin 875mg BID and treat for 7 days. Time Spent With Patient Time: Total time spent is greater than 50% in coordination of care (as documented) at patient's floor/unit and/or counseling patient: Initial: Total time with patient: Less than 40 minutes
[2022-06-05] MEDS ORDERED: AZTREONAM 2 GM VIAL IV SCH (16:00)
[2022-06-05] MEDS: AZTREONAM 1 GM VIAL IV SCH ×2 (16:14→22:24)
[2022-06-05] MEDS: AMOXICILLIN/POTASSIUM CLAV 875 MG TABLET PO SCH (17:27)
[2022-06-06] MEDS: AZTREONAM 1 GM VIAL IV SCH ×3 (05:45→21:12)
[2022-06-06] MEDS: 0.9 % SODIUM CHLORIDE 10 ML SYRINGE IV SCH ×3 (05:45→21:11)
[2022-06-06] MEDS ORDERED: LOPERAMIDE 2 MG CAPSULE PO PRN (07:18)
[2022-06-06] MEDS: DULoxetine 20 MG CAPSULE PO SCH ×2 (08:58→21:10)
[2022-06-06] MEDS: AMOXICILLIN/POTASSIUM CLAV 875 MG TABLET PO SCH ×2 (08:58→17:56)
[2022-06-06] MEDS: ACYCLOVIR 400 MG TABLET PO SCH ×2 (08:59→21:10)
[2022-06-06] MEDS: ASPIRIN 81 MG TAB.CHEW PO SCH (08:59)
[2022-06-06] MEDS: GABAPENTIN 300 MG CAPSULE PO SCH ×4 (08:59→21:10)
[2022-06-06] MEDS: ENOXAPARIN 40 MG/0.4 ML SYRINGE SQ SCH (09:14)
--- NOTE | 2022-06-06 10:26 | Internal Med Progress Note ---
SUBJECTIVE Subjective Patient information: Note initiated : 06/06/22 at 10:23 am Service Date, if different from initiated Date: [] Patient: Lauren Landin a 46 y/o F admitted on 06/03/22 for skin infection sent by [facility]. Chief Complaint: [] Interval history: History of present illness: Ms. Landin is a 46 year old F Patient presented from [facility] for bacteremia. Patient has a history of Darier chronic skin condition. She had a flareup since last fall. This is resulted in severe erythematous and tender plaquing most notably bilateral axilla and back and groin and under breasts. She gets serosanguineous drainage from these lesions. Recent culture of these drainage fluid revealed Pseudomonas and Acetobacter. Her blood cultures that were drawn on the revealed Corynebacterium stratum. Patient says she has had fevers chills and headache. Systolic blood pressure in the ED has been 90s to low 100s. Patient is also been on topical steroids at times is with topical antibiotics. She was on ciprofloxacin in April for extended period of time. She has most recently been on Keflex since the . She has not had any significant improvement in her flare thus far. 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 06/04 Patient slept all right. Awaiting culture report and ID consult recommendations. Continue broad-spectrum IV antibiotics until seen by infectious disease specialist. Monitor CBC and chemistry panel. Leukocytosis mildly improved faxed report of sensitivities to Pseudomonas revealed resistance to ciprofloxacin and gentamicin, sensitive to aztreonam cefepime and Zosyn. Fax report of sensitivities to Acinetobacter show sensitivity to all antibiotics tested. report from 05/31/2022 reveals Corynebacterium striatum group in both bottles of one set, blood cultures. Looks like other set negative. 06/05 Patient tired today. Developed diarrhea yesterday. Will DC stool softeners. Check fecal WBCs. Awaiting ID consult. Leukocytosis resolved. 06/06 Diarrhea seems to resolved. started augemtin and aztreonam per ID. awaiting midline placement and output infusion coordination. Review of Systems: Positive for headache. Denies fever/chills/nausea/vomiting/chest or abdominal pain/cough/dyspnea. Otherwise see above. PHYSICAL EXAM: General: Alert, Awake, No acute Distress, obese Eyes/N/T: EOMI, no scleral icterus, Head/Neck: neck supple, full ROM, CV: RRR, No murmurs, Pulm: Clear b/l, no wheezing/rhonchi/rales, no respiratory distress Abd: soft, nontender, +BS x4 Ext: no clubbing/cyanosis/edema, nontender Neuro: Alert, no focal deficits, moves all extremities, sensations intact b/l upper/lower Psychiatric: Skin: Erythematous and tender plaques bilateral axilla and lower back with serosanguineous drainage Constitutional Vitals: Vital Signs Temp Pulse Resp BP Pulse Ox O2 Del Method 97.7 F 60 16 116/86 100 Room Air 06/06/22 09:06 06/06/22 09:06 06/06/22 09:06 06/06/22 09:06 06/06/22 09:06 06/06/22 09:06 Period Temp Pulse Resp BP Sys/Parker Pulse Ox O2 Del Method O2 Flow Rate Last 24 Hr 97.7 F-98.4 F 55-65 16-18 116-136/82-91 96-100 Room Air-Room Air Intake and Output 06/05/22 06/06/22 06/06/22 19:59 03:59 11:59 Intake Total 2810 480 350 Balance 2810 480 350 Weight 97.636 kg Intake & Output: Intake & Output 06/05/22 06/06/22 06/06/22 19:59 03:59 11:59 Intake Total 2810 480 350 Balance 2810 480 350 Weight 97.636 kg Intake: IV 1050 Sodium Chloride 0.9% 1,000 ml @ 1000 125 mls/hr IV .Q8H JEFF Rx#: [id number] Zosyn 3.375 gm In Dextrose 5% 50 in Water 50 ml @ 100 mls/hr IV Q6H JEFF Rx#:[id number] Oral 1760 480 350 Other: Meal Lunch Percent of Meal Consumed 100% Feeding Ability Independent Urine Appearance Clear Urine Color Pale Stool Size Small Stool Color Brown Stool Consistency Formed # Voids 1 1 1 # Bowel Movements 1 OBJ DATA Labs 06/05/22 07:24 06/04/22 05:04 Labs: Abnormal Lab Results 06/05/22 06/05/22 06/04/22 07:24 07:24 05:04 WBC MCHC 30.5 L Eos % (Auto) 9.8 H Eos # (Auto) 0.88 H Total Protein 5.7 L Globulin 2.1 L Vancomycin Trough 24.2 H* 06/04/22 06/03/22 05:04 19:49 WBC 11.4 H 12.6 H MCHC 30.4 L Eos % (Auto) 9.1 H 8.6 H Eos # (Auto) 1.04 H 1.08 H Total Protein Globulin Vancomycin Trough Meds: Medications Hydrocodone Bitart/Acetaminophen (Hydrocodone/Apap 5/325mg Tablet) 1 tab PO Q4HP PRN PRN Reason: PAIN LEVEL 3-6 Last Admin: 06/04/22 09:28 Dose: 1 tab Acyclovir (Acyclovir 400 Mg Tablet) 800 mg PO BID [facility] Last Admin: 06/06/22 08:59 Dose: 800 mg Albuterol/Ipratropium (Ipratropium/Albuterol 3 Ml Ampul.Neb) 3 ml NEB Q4HP PRN PRN Reason: Shortness Of Breath Amoxicillin/Clavulanate Potassium (Amoxicillin/Potassium Clav 875 Mg Tablet) [facility] Protocol Last Admin: 06/06/22 08:58 Dose: 875 mg Aspirin (Aspirin 81 Mg Tab.Chew) 81 mg PO DAILY [facility] Last Admin: 06/06/22 08:59 Dose: 81 mg Aztreonam (Aztreonam 1 Gm Vial) 2 gm IV Q8 [facility]; Protocol Last Admin: 06/06/22 05:45 Dose: 2 gm Benzonatate (Benzonatate 100 Mg Capsule) 100 - 200 mg PO Q8HP PRN PRN Reason: cough Diphenhydramine HCl (Diphenhydramine 25 Mg Capsule) 25 mg PO Q4HP PRN PRN Reason: Allergic Symptoms Last Admin: 06/04/22 09:28 Dose: 25 mg Duloxetine HCl (Duloxetine 20 Mg Capsule) 20 mg PO BID [facility] Last Admin: 06/06/22 08:58 Dose: 20 mg Enoxaparin Sodium (Enoxaparin 40 Mg/0.4 Ml Syringe) 40 mg SQ DAILY [facility] Last Admin: 06/06/22 09:14 Dose: 40 mg Fluconazole (Fluconazole 100 Mg Tablet) 100 mg PO QWEEK [facility]; Protocol Last Admin: 06/04/22 09:16 Dose: 100 mg Gabapentin (Gabapentin 300 Mg Capsule) 600 mg PO QID [facility] Last Admin: 06/06/22 08:59 Dose: 600 mg Heparin Sodium (Porcine) (Heparin Flush 10 Units/Ml 5 Ml Syringe) 2 ml IV Q12 [facility] Last Admin: 06/06/22 08:46 Dose: Not Given Potassium Chloride 40 meq/ (Dextrose) 520 mls @ 130 mls/hr IV UD PRN PRN Reason: Potassium < 3 Magnesium Sulfate (Magnesium Sulfate) 2 gm in 50 mls @ 50 mls/hr IV UD PRN PRN Reason: Magnesium </= 1.6 Loperamide HCl (Loperamide 2 Mg Capsule) 2 mg PO PRN PRN PRN Reason: Diarrhea Meloxicam (Meloxicam 7.5 Mg Tablet) 7.5 mg PO QDAY PRN; Protocol PRN Reason: pain Ondansetron HCl (Ondansetron 4 Mg/2 Ml Vial) 4 mg IV Q4HP PRN PRN Reason: Nausea And Vomiting Potassium Chloride (Potassium Chloride 20 Meq Tablet) 40 meq PO UD PRN PRN Reason: Potssium is 3-3.5 Potassium Chloride (Potassium Chloride 20 Meq Tablet) 40 meq PO UD PRN PRN Reason: Potassium < 3 Sodium Chloride (0.9 % Sodium Chloride 10 Ml Syringe) 10 ml IV Q8 [facility] Last Admin: 06/06/22 05:45 Dose: 10 ml A/P Narrative A/P Narrative: A: *?Bacteremia (Corynebacterium stratum - suspected contaminant): -repeat BC neg thus far *Wound infections: 2/2 below -Cxs' with Pseudomonas/Acinetobacter *Teresa sim chronic skin condition with flare, drainage from multiple areas, -Follows with dermatology and is on chronic acyclovir/fluconazole, was on topical gentamicin at one point *Leukocytosis: 2/2 above, improving *Obesity: BMI 38 *HTN/HLD: *Anxiety: *Anemia, chronic: *GERD: P: -cont aztreonam 2gm tid and augmentin bid for 1 week -ID consult -Repeat blood neg thus far -mrsa screen neg -cont home BB/SNRI, asa/statin -CM for any placement needs -ppx:Lovenox / home PPI Time Spent With Patient Time: Total time spent is greater than 50% in coordination of care (as documented) at patient's floor/unit and/or counseling patient: Subsequent: Total time with patient: 35 - 49 minutes QUALITY VTE Deep Vein Thrombosis/Pulmonary Embolism Present on Admission: No
[2022-06-06] MEDS: HYDROcodone/APAP 5/325MG TABLET PO PRN (11:18)
[2022-06-06] MEDS: diphenhydrAMINE 25 MG CAPSULE PO PRN (21:10)
[2022-06-07] MEDS: AZTREONAM 1 GM VIAL IV SCH ×2 (05:41→13:34)
[2022-06-07] MEDS: 0.9 % SODIUM CHLORIDE 10 ML SYRINGE IV SCH ×2 (05:42→13:34)
[2022-06-07] MEDS: ENOXAPARIN 40 MG/0.4 ML SYRINGE SQ SCH (08:33)
[2022-06-07] MEDS: AMOXICILLIN/POTASSIUM CLAV 875 MG TABLET PO SCH (08:47)
[2022-06-07] MEDS: GABAPENTIN 300 MG CAPSULE PO SCH ×2 (08:47→13:34)
[2022-06-07] MEDS: ASPIRIN 81 MG TAB.CHEW PO SCH (08:47)
[2022-06-07] MEDS: ACYCLOVIR 400 MG TABLET PO SCH (08:48)
[2022-06-07] MEDS: DULoxetine 20 MG CAPSULE PO SCH (08:48)
--- NOTE | 2022-06-07 11:49 | Internal Med Progress Note ---
SUBJECTIVE Subjective Patient information: Note initiated : 06/07/22 at 11:47 am Service Date, if different from initiated Date: [] Patient: Lauren Landin 46 y/o F admitted on 06/05/22 for skin infection sent by [facility]. Chief Complaint: [] Principal diagnosis: Leg abscess Interval history: Patient underwent debridement. Cultures negative to date Constitutional Vitals: Vital Signs Temp Pulse Resp BP Pulse Ox O2 Del Method 97.7 F 68 14 128/91 97 Room Air 06/07/22 08:15 06/07/22 08:15 06/07/22 08:15 06/07/22 08:15 06/07/22 08:15 06/07/22 08:15 Period Temp Pulse Resp BP Sys/Parker Pulse Ox O2 Del Method O2 Flow Rate Last 24 Hr 97.7 F-98.6 F 64-68 14-16 125-136/78-94 97-99 Room Air-Room Air Intake and Output 06/06/22 06/07/22 06/07/22 19:59 03:59 11:59 Intake Total 754 799 9942 Output Total 50 300 Balance 450 800 700 Weight 217 lb 6.4 oz Intake & Output: Intake & Output 06/06/22 06/07/22 06/07/22 19:59 03:59 11:59 Intake Total 598 411 0647 Output Total 50 300 Balance 450 800 700 Weight 217 lb 6.4 oz Intake: Oral 445 265 4317 Output: Void Amount 50 300 Other: Meal Lunch Dinner Breakfast Percent of Meal Consumed 75% 75% 100% Feeding Ability Independent Independent Urine Appearance Cloudy Clear Urine Color Bright Yellow Yellow Urine Odor Normal # Voids 2 1 # Bowel Movements 1 Exam: Alert, no distress Right leg with wound VAC on. There is no surrounding cellulitis OBJ DATA Labs 06/05/22 07:24 06/04/22 05:04 Labs: Abnormal Lab Results 06/05/22 06/05/22 07:24 07:24 MCHC 30.5 L Eos % (Auto) 9.8 H Eos # (Auto) 0.88 H Vancomycin Trough 24.2 H* Meds: Medications Hydrocodone Bitart/Acetaminophen (Hydrocodone/Apap 5/325mg Tablet) 1 tab PO Q4HP PRN PRN Reason: PAIN LEVEL 3-6 Last Admin: 06/06/22 11:18 Dose: 1 tab Acyclovir (Acyclovir 400 Mg Tablet) 800 mg PO BID [facility] Last Admin: 06/07/22 08:48 Dose: 800 mg Albuterol/Ipratropium (Ipratropium/Albuterol 3 Ml Ampul.Neb) 3 ml NEB Q4HP PRN PRN Reason: Shortness Of Breath Amoxicillin/Clavulanate Potassium (Amoxicillin/Potassium Clav 875 Mg Tablet) [facility]; Protocol Last Admin: 06/07/22 08:47 Dose: 875 mg Aspirin (Aspirin 81 Mg Tab.Chew) 81 mg PO DAILY [facility] Last Admin: 06/07/22 08:47 Dose: 81 mg Aztreonam (Aztreonam 1 Gm Vial) 2 gm IV Q8 [facility]; Protocol Last Admin: 06/07/22 05:41 Dose: 2 gm Benzonatate (Benzonatate 100 Mg Capsule) 100 - 200 mg PO Q8HP PRN PRN Reason: cough Diphenhydramine HCl (Diphenhydramine 25 Mg Capsule) 25 mg PO Q4HP PRN PRN Reason: Allergic Symptoms Last Admin: 06/06/22 21:10 Dose: 25 mg Duloxetine HCl (Duloxetine 20 Mg Capsule) 20 mg PO BID [facility] Last Admin: 06/07/22 08:48 Dose: 20 mg Enoxaparin Sodium (Enoxaparin 40 Mg/0.4 Ml Syringe) 40 mg SQ DAILY [facility] Last Admin: 06/07/22 08:33 Dose: 40 mg Fluconazole (Fluconazole 100 Mg Tablet) 100 mg PO QWEEK [facility]; Protocol Last Admin: 06/04/22 09:16 Dose: 100 mg Gabapentin (Gabapentin 300 Mg Capsule) 600 mg PO QID [facility] Last Admin: 06/07/22 08:47 Dose: 600 mg Heparin Sodium (Porcine) (Heparin Flush 10 Units/Ml 5 Ml Syringe) 2 ml IV Q12 [facility] Last Admin: 06/07/22 08:33 Dose: 2 ml Potassium Chloride 40 meq/ (Dextrose) 520 mls @ 130 mls/hr IV UD PRN PRN Reason: Potassium < 3 Magnesium Sulfate (Magnesium Sulfate) 2 gm in 50 mls @ 50 mls/hr IV UD PRN PRN Reason: Magnesium </= 1.6 Loperamide HCl (Loperamide 2 Mg Capsule) 2 mg PO PRN PRN PRN Reason: Diarrhea Meloxicam (Meloxicam 7.5 Mg Tablet) 7.5 mg PO QDAY PRN; Protocol PRN Reason: pain Ondansetron HCl (Ondansetron 4 Mg/2 Ml Vial) 4 mg IV Q4HP PRN PRN Reason: Nausea And Vomiting Potassium Chloride (Potassium Chloride 20 Meq Tablet) 40 meq PO UD PRN PRN Reason: Potssium is 3-3.5 Potassium Chloride (Potassium Chloride 20 Meq Tablet) 40 meq PO UD PRN PRN Reason: Potassium < 3 Sodium Chloride (0.9 % Sodium Chloride 10 Ml Syringe) 10 ml IV Q8 [facility] Last Admin: 06/07/22 05:42 Dose: 10 ml A/P Narrative A/P Narrative: Patient would like abscess, status post debridement, culture negative. Patient previously had cellulitis with group A strep bacteremia. Suspect to be the same pathogen. Can switch patient to p.o. Augmentin and treat for additional 10 days ID will sign off, please call as needed Time Spent With Patient Time: Total time spent is greater than 50% in coordination of care (as documented) at patient's floor/unit and/or counseling patient: QUALITY VTE Deep Vein Thrombosis/Pulmonary Embolism Present on Admission: No
== END 2022-06-07 14:00 | disposition home or self-care (01) | DRG 603 ==
LOC: ED 15:53 → ICU 15:53
PROVIDERS: ADMIT Internal Medicine; ATTEND Internal Medicine